=== PATIENT | female | born 1965 | race Caucasian/White ===

== ENCOUNTER 2020-02-23 14:19 | Observation (INO) ==
[2020-02-23] MEDS ORDERED: *HR* Promethazine 25 MG/ML VIAL IVP PRN (16:23)
[2020-02-23] MEDS ORDERED: Nitroglycerin 0.4 MG TAB.SUBL SL PRN (16:26)
[2020-02-23] MEDS ORDERED: Pantoprazole 40 MG VIAL IVP ONE (16:27)
[2020-02-24 06:32] LABS: Hematocrit 39.8 % (35.3-44.9); Hemoglobin 12.7 g/dL (11.5-15.4); Mean Corpuscular HGB Conc 31.9 g/dL (31.6-35.5); Mean Corpuscular Hemoglobin 27.2 pg (28.0-33.3); Mean Corpuscular Volume 85.2 fL (83.0-100.0); Mean Platelet Volume 9.9 fL (9.4-12.4); Platelet Count 283 K/mcL (140-400); Red Blood Count 4.67 M/mcL (3.82-4.97); Red Cell Distribution Width 14.8 % (11.5-14.5); White Blood Count 6.9 K/mcL (4.3-11.1)
[2020-02-24 06:51] LABS: BUN/Creatinine Ratio 12 (6-26); Blood Urea Nitrogen 10 mg/dL (6-20); Calcium 9.3 mg/dL (8.6-10.3); Carbon Dioxide 26 mEq/L (23-29); Chloride 106 mEq/L (98-107); Glucose 93 mg/dL (70-105); Osmolality,Calculated 289 (280-300); Potassium 3.7 mEq/L (3.5-5.1); Sodium 140 mEq/L (136-145); eGFR For African Americans > 60 (> 60); eGFR For Non-African Americans > 60 (> 60)
[2020-02-24] MEDS ORDERED: Aspirin 81 MG TAB.CHEW PO SCH (09:00)
[2020-02-24 14:26] VITALS: BP 120/80
== END 2020-02-24 15:12 | disposition home or self-care (01) ==
LOC: EMEROOARM 14:19 → 3BNU 14:19 → SUATTDRO 16:26 → 3BNU 17:04
PROVIDERS: ADMIT Internal Medicine; ATTEND Internal Medicine